=== PATIENT | male | born 1960 | race Caucasian/White ===

== ENCOUNTER 2022-11-26 21:20 | Inpatient (IN) | payer MEDICAID ==
[~2022-11-26] VITALS: Ht 177.8 cm; Wt 97.7 kg
[~2022-11-26 21:20] MED LIST: LIDOcaine 2% (20 mg/ml) 5ml cardiac syringe ONE; MAGNESIUM SULFATE 4 MEQ/ML (5gm/10ml) injection ONE; NORepinephrine 1 mg/ml inj IV ONE; albumin (human) 25% 100 ML IV solution IV ONE; aminocaproic acid 250 MG/1 ML inj. ONE; calcium chloride 100 MG/1 ML inj IV ONE; heparin 1,000 units/ml 10ml inj ONE; heparin 10,000 units/1 ML INJ ONE; mannitol 12.5gm/50mL VIAL IV ONE; methylPREDNISolone sod succ 1000mg vial ONE; sodium bicarbonate (8.4%) 1 mEq/ml syringe ONE
--- NOTE | 2022-11-26 21:41 | NUR ---
PER DR PINTO CONTINUE HEPARIN DRIP AT 1000 UNITS/HR THAT WAS STARTED PEN TESTER
[2022-11-26] MEDS: heparin 10,000 units/1 ML INJ IV PRN (21:42)
--- NOTE | 2022-11-26 21:42 | NUR ---
PER DR PINTO NO HEPARIN BOLUS PRIOR TO DRIP BOLUS WAS GIVEN AT PREVIOUS FACILITY
[2022-11-26 21:51] LABS: BASOPHILS % (AUTO) 0.3 % (0-1); EOSINOPHILS # (AUTO) 0.1 X10'3 (0-0.9); EOSINOPHILS % (AUTO) 1.2 % (0-6); HEMOGLOBIN 17.1 g/dl (14.0-17.9); LYMPHOCYTES # (AUTO) 1.7 X10'3 (1.1-4.8); LYMPHOCYTES % (AUTO) 20.6 % (21-51); MEAN CORPUSCULAR HEMOGLOBIN 30.7 PG (27.0-31.0); MEAN CORPUSCULAR HGB CONC 34.3 g/dL (33.0-36.5); MEAN CORPUSCULAR VOLUME 89.5 FL (78-98); MEAN PLATELET VOLUME 11.2 FL (7.4-10.4); MONOCYTES # (AUTO) 0.7 X10'3 (0-0.9); MONOCYTES % (AUTO) 8.1 % (2-12); NEUTROPHILS # (AUTO) 5.8 X10'3 (1.8-7.7); NEUTROPHILS % (AUTO) 69.8 % (42-75); PLATELET COUNT 182 X10'3 (140-440); RED BLOOD COUNT 5.58 X10'6 (4.70-6.10); RED CELL DISTRIBUTION WIDTH 13.6 % (11.5-14.5); WHITE BLOOD COUNT 8.3 X10'3 (4.5-11.0)
[2022-11-26 21:54] LABS: D-DIMER < 0.19 MG/L FEU (0-0.50)
[2022-11-26] MEDS: heparin 25,000 UNIT/250ml bag 250 ML IV PRN (21:55)
[2022-11-26 21:56] LABS: ALANINE AMINOTRANSFERASE 37 U/L (12-78); ALBUMIN 3.9 G/DL (3.4-5.0); ALBUMIN/GLOBULIN RATIO 1.3 (1.1-1.5); ALKALINE PHOSPHATASE 57 IU/L (46-116); ANION GAP 10 (8-16); ASPARTATE AMINO TRANSFERASE 94 U/L (10-37); BILIRUBIN,TOTAL 0.7 MG/DL (0.1-1.0); BLOOD UREA NITROGEN 14 MG/DL (7-18); BUN/CREATININE RATIO 16.9 (10.0-20.0); CALCIUM 9.4 MG/DL (8.5-10.1); CHLORIDE 103 MMOL/L (99-107); CREATININE 0.83 MG/DL (0.60-1.10); GLUCOSE 107 MG/DL (70-104); SODIUM 136 MMOL/L (135-145); TOTAL CARBON DIOXIDE 23.3 MMOL/L (24-32); eGFR > 90 ML/MIN
[2022-11-26] MEDS ORDERED: magnesium 4gm in 100ml NS 100 ML IV PRN (22:20)
[2022-11-26] MEDS ORDERED: mag hydrox/Alum hydrox/simeth 30ml oral suspension PO PRN (22:20)
[2022-11-26] MEDS ORDERED: magnesium 2GM in 50ml NS 50 ML IV PRN (22:20)
[2022-11-26] MEDS ORDERED: magnesium hydroxide 30ml (MOM) UD suspension PO PRN (22:20)
[2022-11-26] MEDS ORDERED: potassium Cl 40MEQ/1/2NS 520ml 520 ML IV PRN (22:20)
[2022-11-26] MEDS ORDERED: HYDROcodone/acetaminophen 5mg/325mg tablet PO PRN (22:20)
[2022-11-26] MEDS ORDERED: magnesium Cl slow-release 64mg tablet PO PRN (22:20)
[2022-11-26] MEDS ORDERED: potassium Cl 20 mEq SR tablet PO PRN ×2 (22:20)
[2022-11-26] MEDS ORDERED: ondansetron/PF 4mg/2ml inj IV PRN (22:20)
[2022-11-26] MEDS ORDERED: PERFLUTREN PROTEIN-A MICROSPHR (Optison) 0.22 MG/ML 3ML VIAL IV ONE (22:20)
[2022-11-26] MEDS ORDERED: metoprolol tartrate 50mg tablet PO ONE (22:25)
[2022-11-26] MEDS ORDERED: metoprolol tartrate 1mg/ml inj IV ONE (22:25)
[2022-11-26] MEDS: normal saline 1000ml 1,000 ML IV SCH (22:48)
--- NOTE | 2022-11-26 22:53 | NUR ---
CALL PLACED TO DR PANTOJA TO CLARIFY MED ORDERS PT HAS IV AND ORAL BETA BLOCKERS ORDERED WITH BP 128/92. PER MD GIVE IV FIRST, CHECK BP AFTER 30 MINUTES THEN GIVE ORAL IF APPROPRIATE. MD STATES BP SHOULD BE LOW AND HEART RATE SLOW PT IS HAVING NSTEMI
--- NOTE | 2022-11-26 23:10 | NUR ---
attempted to call report to floor rn, she is starting an IV and requests 10 minutes
--- NOTE | 2022-11-26 23:45 | NUR ---
Pt arrived to unit via gurney and ER nurse. Pt is A+Ox4, able to walk ad becca, states he has 3/10 tightness to chest, but not like it was earlier. Pt has no skin issues. NPO for medical laboratory scientist scheduled for morning shift.
[2022-11-27] VITALS (12 sets, daily range): BP systolic 102–141; BP diastolic 69–87
--- NOTE | 2022-11-27 01:29 | NUR ---
Spoke with Dr. Rosales regardign new Triponin level from lab of [phone]. will continue to monitor.
--- NOTE | 2022-11-27 06:08 | NUR ---
Problems reprioritized. Patient report given, questions answered & plan of care reviewed with Valery AMADOR. Pt stable at shift change.
[2022-11-27 06:48] LABS: BASOPHILS % (AUTO) 0.4 % (0-1); EOSINOPHILS # (AUTO) 0.1 X10'3 (0-0.9); EOSINOPHILS % (AUTO) 2.1 % (0-6); HEMOGLOBIN 16.5 g/dl (14.0-17.9); MONOCYTES # (AUTO) 0.4 X10'3 (0-0.9); MONOCYTES % (AUTO) 7.5 % (2-12); WHITE BLOOD COUNT 5.8 X10'3 (4.5-11.0)
[2022-11-27 06:50] LABS: HEMATOCRIT 48.9 % (42.0-52.0); LYMPHOCYTES # (AUTO) 1.6 X10'3 (1.1-4.8); LYMPHOCYTES % (AUTO) 27.4 % (21-51); MEAN CORPUSCULAR HEMOGLOBIN 30.3 PG (27.0-31.0); MEAN CORPUSCULAR HGB CONC 33.7 g/dL (33.0-36.5); MEAN CORPUSCULAR VOLUME 89.9 FL (78-98); MEAN PLATELET VOLUME 11.4 FL (7.4-10.4); NEUTROPHILS # (AUTO) 3.6 X10'3 (1.8-7.7); NEUTROPHILS % (AUTO) 62.6 % (42-75); PLATELET COUNT 187 X10'3 (140-440); RED BLOOD COUNT 5.44 X10'6 (4.70-6.10); RED CELL DISTRIBUTION WIDTH 13.4 % (11.5-14.5)
--- NOTE | 2022-11-27 07:00 | NUR ---
Patient in room PCU 3014. I have received report from Janessa AMADOR and had the opportunity to ask questions and assume patient care.
[2022-11-27 07:15] LABS: ALANINE AMINOTRANSFERASE 37 U/L (12-78); ALBUMIN 3.6 G/DL (3.4-5.0); ALBUMIN/GLOBULIN RATIO 1.2 (1.1-1.5); ALKALINE PHOSPHATASE 58 IU/L (46-116); ANION GAP 9 (8-16); ASPARTATE AMINO TRANSFERASE 76 U/L (10-37); BILIRUBIN,TOTAL 0.8 MG/DL (0.1-1.0); BLOOD UREA NITROGEN 12 MG/DL (7-18); BUN/CREATININE RATIO 11.9 (10.0-20.0); CALCIUM 8.8 MG/DL (8.5-10.1); CHLORIDE 104 MMOL/L (99-107); CREATININE 1.01 MG/DL (0.60-1.10); GLUCOSE 97 MG/DL (70-104); MAGNESIUM 1.8 MG/DL (1.5-2.4); POTASSIUM 4.1 MMOL/L (3.5-5.1); SODIUM 138 MMOL/L (135-145); TOTAL CARBON DIOXIDE 25.1 MMOL/L (24-32); TOTAL PROTEIN 6.7 G/DL (6.4-8.2); eGFR 75 ML/MIN
[2022-11-27] MEDS: heparin 10,000 units/1 ML INJ IV PRN (07:30)
[2022-11-27] MEDS: acetaminophen 325mg tablet PO PRN ×2 (07:36→19:44)
[2022-11-27] MEDS: K and/or MAG REPLACEMENT MC SCH ×2 (08:00→19:53)
[2022-11-27] MEDS ORDERED: aspirin 81mg, enteric-coated 1 TAB TABLET.DR PO SCH (08:00)
[2022-11-27] MEDS ORDERED: docusate sod 100mg capsule PO SCH (08:00)
[2022-11-27] MEDS ORDERED: atorvastatin 20mg tablet PO SCH (08:00)
[2022-11-27] MEDS ORDERED: iohexol 350 MG/ML 50ML vial IV ONE (11:20)
[2022-11-27] MEDS ORDERED: LIDOcaine 1% 30ml preserv. free vial ONE (11:20)
[2022-11-27] MEDS ORDERED: midazolam 1 mg/ML 2ml injection ONE (11:20)
[2022-11-27] MEDS ORDERED: fentaNYL/PF 50MCG/1 ML 2ML syringe ONE (11:20)
[2022-11-27] MEDS ORDERED: iohexol 350MG/ML 100ml bottle IV ONE (11:20)
[2022-11-27 11:33] LABS: CHOLESTEROL 216 MG/DL (0-200); HDL CHOLESTEROL 54 MG/DL (35-60); LDL CHOLESTEROL 145 MG/DL (50-100); TRIGLYCERIDES 101 MG/DL (20-135)
[2022-11-27 11:55] LABS: LARGE PLATELETS MODERATE; PLATELET ESTIMATE NORMAL
[2022-11-27] MEDS ORDERED: diphenhydrAMINE 50 mg/ml inj ONE (12:20)
[2022-11-27] MEDS ORDERED: dextrose 50%-water 50ml dispensing syringe IV PRN (12:45)
[2022-11-27] MEDS ORDERED: cefazolin/dext.iso 2gm/50ml 50 ML IV ONE (12:45)
[2022-11-27] MEDS ORDERED: HYDROcodone/acetaminophen 5mg/325mg tablet PO PRN (12:45)
[2022-11-27] MEDS ORDERED: ondansetron 4mg rapidly disintigrating tab PO PRN (12:45)
[2022-11-27] MEDS ORDERED: Insulin Reg/NS 100units/100mL 100 ML IV SCH (12:45)
[2022-11-27] MEDS ORDERED: MESSAGE TO NURSING PO ONE ×4 (12:45)
[2022-11-27] MEDS ORDERED: gabapentin 400mg capsule PO ONE (12:45)
[2022-11-27] MEDS ORDERED: insulin glargine (Lantus) pen - multi-dose SQ PRN (12:45)
[2022-11-27] MEDS ORDERED: MESSAGE TO PHARMACY IJ ONE (12:45)
--- NOTE | 2022-11-27 14:00 | NUR ---
pt received from medical laboratory technologist by bed. Doug MUNGUIA here- discussed or, shown pt pictures of cath and blockages
[2022-11-27] MEDS ORDERED: acetaminophen 325mg tablet PO PRN (14:50)
[2022-11-27] MEDS ORDERED: HYDROcodone/acetaminophen 10/325mg tab PO PRN ×2 (14:50→15:20)
[2022-11-27] MEDS ORDERED: nitroGLYCERIN 0.4mg SUBLingual tab SL PRN (14:50)
[2022-11-27] MEDS ORDERED: proCHLORperazine 10 MG/2 ml inj IV PRN (14:50)
[2022-11-27] MEDS ORDERED: magnesium hydroxide 30ml (MOM) UD suspension PO PRN (14:50)
--- NOTE | 2022-11-27 14:52 | NUR ---
Pt left for the lab animal technologist and was transferred to ICU.
[2022-11-27] MEDS ORDERED: normal saline 1000ml 1,000 ML IV ONE (14:55)
[2022-11-27] MEDS ORDERED: NO HOME MEDS (15:17)
[2022-11-27] MEDS ORDERED: morphine 10mg/ml inj. IV PRN (15:25)
[2022-11-27] MEDS: heparin 25,000 UNIT/250ml bag 250 ML IV PRN (18:44)
[2022-11-27 19:03] LABS: CLARITY,URINE CLEAR (Clear); COLOR,URINE YELLOW (Yellow); GLUCOSE, URINE NEGATIVE (Neg); KETONES,URINE TRACE mg/dl (Neg); LEUKOCYTE ESTERASE ,URINE NEGATIVE (Neg); NITRITES, URINE NEGATIVE (Neg); OCCULT BLOOD,URINE NEGATIVE (Neg); PH,URINE 6.5 (4.8-8.0); PROTEIN,URINE NEGATIVE (Neg)
[2022-11-27 19:06] LABS: UA COLLECTION TYPE NON-SPECIFIED
[2022-11-27 19:18] LABS: HEMOGLOBIN A1C 5.4 % (4.5-6.2)
[2022-11-27] MEDS: docusate sod 100mg capsule PO SCH (19:44)
[2022-11-27] MEDS: morphine 4 MG/ML inj SYRINge IV PRN ×2 (19:44→23:00)
[2022-11-27] MEDS: normal saline 1000ml 1,000 ML IV SCH (19:45)
[2022-11-27 19:56] LABS: ABG BASE EXCESS 1.8 mmol/L (-2.0-2.0); ABG PO2 (T) 87.4 mmHg (75.0-100.0); FCOHb 0.5 % (0.0-3.9); FMetHb 0.4 % (0.0-1.5); FO2Hb 96.1 % (94-97); PATIENT TEMPERATURE 36.7; TOTAL HEMOGLOBIN 16.3 G/dl (14.0-17.9)
[2022-11-27] MEDS: OXAZEpam 15mg capsule PO PRN (22:59)
[2022-11-28] VITALS (24 sets, daily range): BP systolic 97–148; BP diastolic 47–94
[2022-11-28 02:21] LABS: BASOPHILS % (AUTO) 0.5 % (0-1); EOSINOPHILS # (AUTO) 0.1 X10'3 (0-0.9); EOSINOPHILS % (AUTO) 1.5 % (0-6); HEMATOCRIT 44.9 % (42.0-52.0); HEMOGLOBIN 15.1 g/dl (14.0-17.9); LYMPHOCYTES # (AUTO) 1.2 X10'3 (1.1-4.8); LYMPHOCYTES % (AUTO) 22.5 % (21-51); MEAN CORPUSCULAR HEMOGLOBIN 30.5 PG (27.0-31.0); MEAN CORPUSCULAR HGB CONC 33.6 g/dL (33.0-36.5); MEAN CORPUSCULAR VOLUME 90.6 FL (78-98); MONOCYTES # (AUTO) 0.4 X10'3 (0-0.9); MONOCYTES % (AUTO) 6.9 % (2-12); NEUTROPHILS # (AUTO) 3.6 X10'3 (1.8-7.7); NEUTROPHILS % (AUTO) 68.6 % (42-75); PLATELET COUNT 163 X10'3 (140-440); RED BLOOD COUNT 4.95 X10'6 (4.70-6.10); RED CELL DISTRIBUTION WIDTH 13.4 % (11.5-14.5); WHITE BLOOD COUNT 5.2 X10'3 (4.5-11.0)
[2022-11-28 02:28] LABS: ALANINE AMINOTRANSFERASE 29 U/L (12-78); ALBUMIN 3.2 G/DL (3.4-5.0); ALBUMIN/GLOBULIN RATIO 1.1 (1.1-1.5); ALKALINE PHOSPHATASE 54 IU/L (46-116); ANION GAP 8 (8-16); ASPARTATE AMINO TRANSFERASE 50 U/L (10-37); BILIRUBIN,TOTAL 0.5 MG/DL (0.1-1.0); BLOOD UREA NITROGEN 14 MG/DL (7-18); BUN/CREATININE RATIO 15.9 (10.0-20.0); CALCIUM 8.3 MG/DL (8.5-10.1); CHLORIDE 105 MMOL/L (99-107); CREATININE 0.88 MG/DL (0.60-1.10); GLUCOSE 123 MG/DL (70-104); MAGNESIUM 1.8 MG/DL (1.5-2.4); SODIUM 140 MMOL/L (135-145); TOTAL CARBON DIOXIDE 26.9 MMOL/L (24-32); TOTAL PROTEIN 6.1 G/DL (6.4-8.2); eGFR 87 ML/MIN
[2022-11-28 02:29] LABS: POTASSIUM 3.8 MMOL/L (3.5-5.1)
[2022-11-28] MEDS: heparin 10,000 units/1 ML INJ IV PRN (03:30)
[2022-11-28] MEDS: morphine 4 MG/ML inj SYRINge IV PRN ×2 (05:01→09:09)
--- NOTE | 2022-11-28 06:30 | NUR ---
Patient in room ICU 2043. I have received report from sekou and had the opportunity to ask questions and assume patient care.
[2022-11-28] MEDS: K and/or MAG REPLACEMENT MC SCH ×2 (06:47→20:00)
--- NOTE | 2022-11-28 07:00 | NUR ---
drsg removed arterial sheath as waveform straight and wouldnt pull back blood. waveform resumed- redressed.
[2022-11-28] MEDS: aspirin 81mg tab.chew PO SCH (07:36)
[2022-11-28] MEDS: atorvastatin 20mg tablet PO SCH (07:36)
[2022-11-28] MEDS: docusate sod 100mg capsule PO SCH ×2 (07:36→21:14)
[2022-11-28] MEDS: cyclobenzaprine 10mg tablet PO PRN (10:36)
[2022-11-28] MEDS: normal saline 1000ml 1,000 ML IV SCH (11:02)
[2022-11-28] MEDS ORDERED: ringers solution, lacted 1,000 ML IV ONE (12:55)
--- NOTE | 2022-11-28 13:24 | NUR ---
rt arterial sheath drsg with drainage- pt keeping leg straight. reinforced. ptt 139- heparin off x 2 hours and restarted at 1100 units/hr. ms and flexeril given with some relief. girlfriend at bs. instructed some on positing, use of is and flutter valve
--- NOTE | 2022-11-28 15:00 | NUR ---
ptt to 41, will increase rate to 1300 units / hr without bolus
[2022-11-28] MEDS: heparin 25,000 UNIT/250ml bag 250 ML IV PRN (15:22)
[2022-11-28] MEDS: HYDROcodone/acetaminophen 10/325mg tab PO PRN ×2 (15:30→21:14)
[2022-11-28] MEDS: OXAZEpam 15mg capsule PO PRN (21:14)
[2022-11-29] VITALS (22 sets, daily range): BP systolic 87–166; BP diastolic 48–94
[2022-11-29 01:52] LABS: ALANINE AMINOTRANSFERASE 28 U/L (12-78); ALBUMIN 2.9 G/DL (3.4-5.0); ALKALINE PHOSPHATASE 51 IU/L (46-116); ANION GAP 6 (8-16); ASPARTATE AMINO TRANSFERASE 38 U/L (10-37); BILIRUBIN,TOTAL 0.5 MG/DL (0.1-1.0); BLOOD UREA NITROGEN 19 MG/DL (7-18); BUN/CREATININE RATIO 21.1 (10.0-20.0); CALCIUM 8.3 MG/DL (8.5-10.1); CHLORIDE 104 MMOL/L (99-107); GLUCOSE 103 MG/DL (70-104); MAGNESIUM 1.9 MG/DL (1.5-2.4); SODIUM 137 MMOL/L (135-145); TOTAL CARBON DIOXIDE 27.2 MMOL/L (24-32); TOTAL PROTEIN 5.9 G/DL (6.4-8.2); eGFR 85 ML/MIN
[2022-11-29 01:56] LABS: POTASSIUM 4.3 MMOL/L (3.5-5.1)
[2022-11-29 02:10] LABS: BASOPHILS % (AUTO) 0.5 % (0-1); EOSINOPHILS # (AUTO) 0.2 X10'3 (0-0.9); EOSINOPHILS % (AUTO) 3.4 % (0-6); HEMATOCRIT 42.3 % (42.0-52.0); HEMOGLOBIN 14.3 g/dl (14.0-17.9); LYMPHOCYTES # (AUTO) 1.4 X10'3 (1.1-4.8); LYMPHOCYTES % (AUTO) 30.4 % (21-51); MEAN CORPUSCULAR HEMOGLOBIN 30.9 PG (27.0-31.0); MEAN CORPUSCULAR HGB CONC 33.8 g/dL (33.0-36.5); MEAN CORPUSCULAR VOLUME 91.4 FL (78-98); MONOCYTES # (AUTO) 0.4 X10'3 (0-0.9); MONOCYTES % (AUTO) 9.1 % (2-12); NEUTROPHILS # (AUTO) 2.6 X10'3 (1.8-7.7); NEUTROPHILS % (AUTO) 56.6 % (42-75); RED BLOOD COUNT 4.63 X10'6 (4.70-6.10); RED CELL DISTRIBUTION WIDTH 13.6 % (11.5-14.5); WHITE BLOOD COUNT 4.5 X10'3 (4.5-11.0)
[2022-11-29 03:51] LABS: PLATELET COUNT 149 X10'3 (140-440)
[2022-11-29] MEDS: morphine 4 MG/ML inj SYRINge IV PRN ×2 (05:51→20:13)
[2022-11-29] MEDS: K and/or MAG REPLACEMENT MC SCH ×2 (06:50→20:00)
[2022-11-29] MEDS: normal saline 1000ml 1,000 ML IV SCH (07:59)
[2022-11-29] MEDS: docusate sod 100mg capsule PO SCH ×2 (08:49→20:00)
[2022-11-29] MEDS: aspirin 81mg tab.chew PO SCH (08:50)
[2022-11-29] MEDS: atorvastatin 20mg tablet PO SCH (08:50)
[2022-11-29] MEDS: heparin 25,000 UNIT/250ml bag 250 ML IV PRN (12:11)
[2022-11-29] MEDS: cyclobenzaprine 10mg tablet PO PRN (17:07)
[2022-11-30] VITALS (27 sets, daily range): BP systolic 89–153; BP diastolic 43–89
[2022-11-30] MEDS: morphine 4 MG/ML inj SYRINge IV PRN (01:36)
[2022-11-30 02:42] LABS: ALANINE AMINOTRANSFERASE 46 U/L (12-78); ALBUMIN 3.1 G/DL (3.4-5.0); ALKALINE PHOSPHATASE 65 IU/L (46-116); ANION GAP 8 (8-16); ASPARTATE AMINO TRANSFERASE 38 U/L (10-37); BILIRUBIN,TOTAL 0.5 MG/DL (0.1-1.0); BLOOD UREA NITROGEN 14 MG/DL (7-18); BUN/CREATININE RATIO 15.6 (10.0-20.0); CALCIUM 8.6 MG/DL (8.5-10.1); CHLORIDE 104 MMOL/L (99-107); GLUCOSE 104 MG/DL (70-104); MAGNESIUM 2.3 MG/DL (1.5-2.4); POTASSIUM 4.1 MMOL/L (3.5-5.1); SODIUM 140 MMOL/L (135-145); TOTAL CARBON DIOXIDE 28.1 MMOL/L (24-32); TOTAL PROTEIN 6.3 G/DL (6.4-8.2); eGFR 85 ML/MIN
[2022-11-30 02:46] LABS: EOSINOPHILS # (AUTO) 0.1 X10'3 (0-0.9); LYMPHOCYTES # (AUTO) 1.2 X10'3 (1.1-4.8); LYMPHOCYTES % (AUTO) 27.7 % (21-51); MEAN CORPUSCULAR HEMOGLOBIN 30.5 PG (27.0-31.0)
[2022-11-30 02:48] LABS: BASOPHILS % (AUTO) 0.7 % (0-1); EOSINOPHILS % (AUTO) 3.2 % (0-6); HEMATOCRIT 44.7 % (42.0-52.0); HEMOGLOBIN 15.1 g/dl (14.0-17.9); MEAN CORPUSCULAR HGB CONC 33.7 g/dL (33.0-36.5); MEAN CORPUSCULAR VOLUME 90.6 FL (78-98); MEAN PLATELET VOLUME 11.3 FL (7.4-10.4); MONOCYTES # (AUTO) 0.4 X10'3 (0-0.9); NEUTROPHILS # (AUTO) 2.5 X10'3 (1.8-7.7); NEUTROPHILS % (AUTO) 59.4 % (42-75); PLATELET COUNT 160 X10'3 (140-440); RED BLOOD COUNT 4.94 X10'6 (4.70-6.10); RED CELL DISTRIBUTION WIDTH 13.2 % (11.5-14.5); WHITE BLOOD COUNT 4.3 X10'3 (4.5-11.0)
[2022-11-30] MEDS: normal saline 1000ml 1,000 ML IV SCH (03:02)
[2022-11-30] MEDS ORDERED: gabapentin 400mg capsule PO ONE (05:30)
[2022-11-30] MEDS ORDERED: MESSAGE TO NURSING PO ONE ×5 (05:30→10:00)
[2022-11-30] MEDS ORDERED: LORazepam 2 mg/ml vial IV ONE (05:30)
[2022-11-30] MEDS ORDERED: famotidine/PF 10 mg/ml inj IV ONE (05:30)
[2022-11-30] MEDS: Insulin Reg/NS 100units/100mL 100 ML IV SCH ×3 (05:30→16:05)
[2022-11-30] MEDS ORDERED: cefazolin/dext.iso 2gm/50ml 50 ML IV ONE (05:30)
[2022-11-30] MEDS ORDERED: insulin glargine (Lantus) pen - multi-dose SQ PRN ×2 (05:30→14:30)
[2022-11-30] MEDS ORDERED: dextrose 50%-water 50ml dispensing syringe IV PRN ×2 (05:30→14:30)
[2022-11-30 06:35] LABS: LARGE PLATELETS MODERATE; PLATELET ESTIMATE NORMAL
--- NOTE | 2022-11-30 06:53 | NUR ---
Messaged ICU director re. advocacy for pt. as pt. is requesting someone with authority/administration to talk with him re. plan of care as CABG is on hold indefinitely. underwriting sales representative updated.
[2022-11-30] MEDS: atorvastatin 20mg tablet PO SCH (07:27)
[2022-11-30] MEDS: docusate sod 100mg capsule PO SCH (07:27)
[2022-11-30] MEDS: aspirin 81mg tab.chew PO SCH (07:28)
[2022-11-30] MEDS: K and/or MAG REPLACEMENT MC SCH (08:00)
[2022-11-30] MEDS ORDERED: mupirocin 2% nasal ointment 1gm UD NS SCH (08:00)
[2022-11-30] MEDS: heparin 25,000 UNIT/250ml bag 250 ML IV PRN (09:00)
[2022-11-30] MEDS ORDERED: BUPIVAcaine/PF 2.5 mg/ml (0.25%) 30ml vial ONE (09:08)
[2022-11-30] MEDS ORDERED: ceFAZolin 1000mg inj ONE (09:08)
[2022-11-30] MEDS ORDERED: epiNEPHrine 1 mg/ml inj ONE (09:08)
--- NOTE | 2022-11-30 09:08 | NUR ---
Pt. to have CABG at 1000 today. Prepped per RN. Awaiting call from CVOR to start Vanco. at bedside.
[2022-11-30] MEDS ORDERED: MIDAZolam 1mg/ml 10ml vial ONE (10:12)
[2022-11-30] MEDS ORDERED: SUfentanil 50mcg/ml 1ml amp IV ONE (10:13)
[2022-11-30] MEDS ORDERED: LIDOcaine 2% (20mg/ml) 5ml vial ONE (10:14)
[2022-11-30] MEDS ORDERED: propofol inj 20 ML IV ONE (10:14)
[2022-11-30] MEDS ORDERED: rocuronium 10mg/ml inj IV ONE ×4 (10:14)
[2022-11-30] MEDS ORDERED: phenylephrine 10mg/ml inj. -priapism dosing ONE (10:14)
[2022-11-30] MEDS ORDERED: 0.9 % SODIUM CHLORIDE 10 ML VIAL ONE ×2 (10:15)
[2022-11-30] MEDS ORDERED: nitroGLYCERIN in D5W 50mg/250ml (Tridil) infusion IV ONE (10:17)
[2022-11-30] MEDS ORDERED: NORepinephrine 8 MG in NS 250 ML BAG (32 mcg/ml) IV ONE (10:17)
[2022-11-30] MEDS ORDERED: isoflurane 100ml inhalation liquid IH ONE (10:17)
--- NOTE | 2022-11-30 10:18 | NUR ---
Pt to CVOR. at bedside.
[2022-11-30] MEDS ORDERED: propofol 1000mg/100ml bottle 100 ML IV SCH (10:20)
[2022-11-30] MEDS ORDERED: fentaNYL/PF 50MCG/1 ML 2ML syringe IV PRN (10:20)
[2022-11-30] MEDS ORDERED: midazolam 1 mg/ML 2ml injection IV PRN (10:20)
[2022-11-30] MEDS ORDERED: FENTANYL-0.9 % NACL/PF 100 ML IV PRN (10:20)
[2022-11-30] MEDS ORDERED: BUPIVAcaine/PF 2.5 mg/ml (0.25%) 30ml vial IJ ONE (11:00)
[2022-11-30] MEDS ORDERED: ceFAZolin 1000mg inj IR ONE (11:00)
[2022-11-30] MEDS ORDERED: papaverine 30 mg/ml 2ml inj. ICAR ONE (11:00)
[2022-11-30] MEDS ORDERED: heparin 10,000 units/1 ML INJ IR ONE (11:00)
[2022-11-30 11:23] LABS: ABG BASE EXCESS -1.9 mmol/L (-2.0-2.0); ABG HCO3 21.9 mmol/L (22.0-26.0); ABG OXYGEN SATURATION 99.8 % (94-97); ABG PCO2 34.6 mmHg (35.0-48.0); CL (ABG) 103 mmol/L (99-107); FCOHb 0.6 % (0.0-3.9); FMetHb 0.2 % (0.0-1.5); GLUCOSE (ABG) 91 mg/dl (70-104); IONIZED CA (ABG) 1.08 mmol/L (1.10-1.30); K (ABG) 3.8 mmol/L (3.5-5.1); TOTAL HEMOGLOBIN 14.9 G/dl (14.0-17.9)
[2022-11-30] MEDS ORDERED: metoprolol tartrate 1mg/ml inj IV ONE (11:43)
[2022-11-30] MEDS ORDERED: papaverine 30 mg/ml 2ml inj. ONE (13:00)
[2022-11-30] MEDS ORDERED: heparin 10,000 units/1 ML INJ ONE (13:00)
[2022-11-30 13:01] LABS: ABG BASE EXCESS 0.5 mmol/L (-2.0-2.0); ABG HCO3 23.5 mmol/L (22.0-26.0); ABG OXYGEN SATURATION 99.7 % (94-97); ABG PCO2 32.2 mmHg (35.0-48.0); ABG PO2 498.4 mmHg (75.0-100.0); CL (ABG) 100 mmol/L (99-107); FCOHb 0.1 % (0.0-3.9); FMetHb 0.3 % (0.0-1.5); FO2Hb 99.3 % (94-97); GLUCOSE (ABG) 97 mg/dl (70-104); IONIZED CA (ABG) 0.94 mmol/L (1.10-1.30); K (ABG) 3.8 mmol/L (3.5-5.1); TOTAL HEMOGLOBIN 11.2 G/dl (14.0-17.9)
[2022-11-30 13:40] LABS: ABG BASE EXCESS VENOUS -1.6 mmol/L (-2.0 - 2.0); ABG HCO3 VENOUS 23.4 mmol/L (21.0-28.0); ABG PCO2 VENOUS 40.4 mmHg (41.0-54.0); ABG PO2 VENOUS 45.3 mmHg (25.0-35.0); CL (ABG) 101 mmol/L (99-107); FCOHb VENOUS 0.5 %; FHHb VENOUS 18.3 %; FMetHb VENOUS 0.3 % (0.0 - 0.5); FO2Hb VENOUS 80.9 %; GLUCOSE (ABG) 116 mg/dl (70-104); IONIZED CA (ABG) 0.99 mmol/L (1.10-1.30); K (ABG) 4.4 mmol/L (3.5-5.1); TOTAL HEMOGLOBIN 11.2 G/dl (14.0-17.9)
[2022-11-30 14:12] LABS: ABG BASE EXCESS VENOUS -0.4 mmol/L (-2.0 - 2.0); ABG HCO3 VENOUS 24.4 mmol/L (21.0-28.0); ABG PCO2 VENOUS 40.6 mmHg (41.0-54.0); ABG PO2 VENOUS 108.4 mmHg (25.0-35.0); CL (ABG) 103 mmol/L (99-107); FCOHb VENOUS 0.3 %; FHHb VENOUS 2.1 %; FMetHb VENOUS 0.3 % (0.0 - 0.5); FO2Hb VENOUS 97.3 %; GLUCOSE (ABG) 115 mg/dl (70-104); IONIZED CA (ABG) 1.14 mmol/L (1.10-1.30); K (ABG) 4.1 mmol/L (3.5-5.1); TOTAL HEMOGLOBIN 11.6 G/dl (14.0-17.9)
[2022-11-30] MEDS ORDERED: ondansetron/PF 4mg/2ml inj ONE (14:12)
[2022-11-30] MEDS ORDERED: dexamethasone sod phosphate 4mg/ml inj. ONE (14:12)
[2022-11-30 14:15] LABS: ACTIVATED CLOTTING TIME 135 SEC (101-148)
[2022-11-30] MEDS ORDERED: sodium phosphate inj. 30 MMOL in dextrose 5%-water 250 ML IV PRN (14:30)
[2022-11-30] MEDS ORDERED: potassium CL 10mEq/100ml bag 100 ML IV PRN (14:30)
[2022-11-30] MEDS ORDERED: Insulin Reg/NS 100units/100mL 100 ML IV SCH (14:30)
[2022-11-30] MEDS ORDERED: potassium Cl 20 mEq SR tablet PO PRN (14:30)
[2022-11-30] MEDS ORDERED: Neutra Phos packet PO PRN (14:30)
[2022-11-30] MEDS ORDERED: mineral oil 133ml enema RC PRN (14:30)
[2022-11-30] MEDS ORDERED: magnesium hydroxide 30ml (MOM) UD suspension PO PRN (14:30)
[2022-11-30] MEDS ORDERED: nitroGLYCERIN-Tridil 50MG/D5W 250 ML IV PRN (14:30)
[2022-11-30] MEDS ORDERED: potassium Cl 40MEQ/270ML bag 250 ML IV PRN (14:30)
[2022-11-30] MEDS ORDERED: niCARDipine-NS 40mg/200ml IVPB 200 ML IV PRN (14:30)
[2022-11-30] MEDS ORDERED: acetaminophen 325mg tablet PO PRN (14:30)
[2022-11-30] MEDS ORDERED: morphine 4 MG/ML inj SYRINge IV PRN (14:30)
[2022-11-30] MEDS ORDERED: bisacodyl 10mg suppository rectal RC PRN (14:30)
[2022-11-30] MEDS ORDERED: potassium Cl 20mEq/100mL bag 100 ML IV PRN (14:30)
[2022-11-30] MEDS ORDERED: sodium phosphate inj. 15 MMOL in dextrose 5%-water 250 ML IV PRN (14:30)
[2022-11-30] MEDS ORDERED: magnesium 4gm in 100ml NS 100 ML IV PRN (14:30)
[2022-11-30] MEDS ORDERED: metoclopramide 5 mg/ml inj IV PRN (14:30)
[2022-11-30] MEDS ORDERED: potassium Cl 40MEQ/1/2NS 520ml 520 ML IV PRN (14:30)
[2022-11-30] MEDS ORDERED: sodium chloride 0.45% 1,000 ML IV SCH (14:30)
[2022-11-30] MEDS ORDERED: normal saline 250ml IV soln 250 ML IV PRN (14:30)
--- NOTE | 2022-11-30 14:55 | NUR ---
Received to room 2043, accompanied by MDs and surgical crew. Placed on ventilator, to monitoring analyst, arterial line and PA line pressure zeroed & monitored. Chest tubes to suction at 20 cm. Ribeiro cath to gravity drainage. Dressings are dry and intact. See assessment record. All vasoactive drugs are infusing via central line.
[2022-11-30 15:06] LABS: ABG BASE EXCESS -2.6 mmol/L (-2.0-2.0); ABG HCO3 21.8 mmol/L (22.0-26.0); ABG OXYGEN SATURATION 98.2 % (94-97); ABG PCO2 (T) 36.9 mmHg (35.0-48.0); ABG PO2 (T) 138.5 mmHg (75.0-100.0); FCOHb 0.3 % (0.0-3.9); FMetHb 0.4 % (0.0-1.5); FO2Hb 97.5 % (94-97); PATIENT TEMPERATURE 37.1; PEEP 5 cm H2O; RESPIRATORY RATE 12 b/min; TIDAL VOLUME 600 mL; TOTAL HEMOGLOBIN 13.9 G/dl (14.0-17.9)
[2022-11-30 15:23] LABS: BASOPHILS % (AUTO) 0.2 % (0-1); EOSINOPHILS # (AUTO) 0.1 X10'3 (0-0.9); EOSINOPHILS % (AUTO) 0.9 % (0-6); HEMATOCRIT 38.9 % (42.0-52.0); HEMOGLOBIN 13.3 g/dl (14.0-17.9); LYMPHOCYTES # (AUTO) 0.5 X10'3 (1.1-4.8); LYMPHOCYTES % (AUTO) 8.8 % (21-51); MEAN CORPUSCULAR HEMOGLOBIN 30.9 PG (27.0-31.0); MEAN CORPUSCULAR HGB CONC 34.1 g/dL (33.0-36.5); MEAN CORPUSCULAR VOLUME 90.6 FL (78-98); MEAN PLATELET VOLUME 10.7 FL (7.4-10.4); MONOCYTES # (AUTO) 0.2 X10'3 (0-0.9); MONOCYTES % (AUTO) 4.1 % (2-12); NEUTROPHILS # (AUTO) 4.7 X10'3 (1.8-7.7); PLATELET COUNT 128 X10'3 (140-440); RED CELL DISTRIBUTION WIDTH 13.3 % (11.5-14.5); WHITE BLOOD COUNT 5.5 X10'3 (4.5-11.0)
[2022-11-30 15:29] LABS: APTT 29 SECONDS (22-32)
[2022-11-30 15:31] LABS: ALANINE AMINOTRANSFERASE 43 U/L (12-78); ALBUMIN 2.9 G/DL (3.4-5.0); ALBUMIN/GLOBULIN RATIO 1.3 (1.1-1.5); ALKALINE PHOSPHATASE 53 IU/L (46-116); ANION GAP 7 (8-16); ASPARTATE AMINO TRANSFERASE 49 U/L (10-37); BILIRUBIN,TOTAL 0.8 MG/DL (0.1-1.0); BLOOD UREA NITROGEN 13 MG/DL (7-18); BUN/CREATININE RATIO 12.5 (10.0-20.0); CALCIUM 8.2 MG/DL (8.5-10.1); CHLORIDE 105 MMOL/L (99-107); CREATININE 1.04 MG/DL (0.60-1.10); GLUCOSE 131 MG/DL (70-104); MAGNESIUM 2.7 MG/DL (1.5-2.4); PHOSPHORUS 3.1 MG/DL (2.3-4.5); POTASSIUM 4.1 MMOL/L (3.5-5.1); SODIUM 139 MMOL/L (135-145); TOTAL CARBON DIOXIDE 27.5 MMOL/L (24-32); TOTAL PROTEIN 5.2 G/DL (6.4-8.2); eGFR 72 ML/MIN
[2022-11-30] MEDS ORDERED: potassium Cl 40MEQ/1/2NS 520ml 520 ML IV ONE (16:00)
[2022-11-30] MEDS: ceFAZolin/D5W- 1GM premix 50 ML IV SCH ×2 (16:12→23:47)
[2022-11-30] MEDS: albumin (Human) 5% 250ml 250 ML IV PRN ×2 (16:19→16:54)
--- NOTE | 2022-11-30 16:36 | NUR ---
Right femoral sheath pulled at 1600 after checking ACT. Femstop applied at 1615.
--- NOTE | 2022-11-30 17:59 | NUR ---
Pt. stable. Received Albumin X 2. Minimal CT output. Received Morphine 4mg X 1 while holding manual pressure for right femoral sheath removal around 1600. Pt. responds to verbal stimuli. Good urine output.
--- NOTE | 2022-11-30 18:11 | NUR ---
Problems reprioritized. Patient report given, questions answered & plan of care reviewed with Farzaneh AMADOR.
--- NOTE | 2022-11-30 18:14 | NUR ---
Patient in room ICU 2043. I have received report from Aydee AMADOR and had the opportunity to ask questions and assume patient care. Pt on vent, sleepy, awakes calmly and follows commands, moves all extremities.
[2022-11-30] MEDS: mupirocin 2% nasal ointment 1gm UD NS SCH (19:28)
[2022-11-30] MEDS: HYDROcodone/acetaminophen 10/325mg tab PO PRN (19:28)
[2022-11-30] MEDS: vancomycin/NS 1 GM ADD-VANTAGE 250 ML IV SCH (19:28)
[2022-11-30] MEDS: sennosides/docusate sodium tablet PO SCH (19:28)
[2022-11-30] MEDS: atorvastatin 10mg tablet PO SCH (20:38)
[2022-11-30] MEDS: gabapentin 300mg capsule PO SCH (20:38)
[2022-11-30 21:06] LABS: BASOPHILS % (AUTO) 0.1 % (0-1); EOSINOPHILS % (AUTO) 0 % (0-6); HEMATOCRIT 37.9 % (42.0-52.0); LYMPHOCYTES # (AUTO) 0.2 X10'3 (1.1-4.8); LYMPHOCYTES % (AUTO) 3.4 % (21-51); MEAN CORPUSCULAR HEMOGLOBIN 31.2 PG (27.0-31.0); MEAN CORPUSCULAR HGB CONC 34.4 g/dL (33.0-36.5); MEAN CORPUSCULAR VOLUME 90.5 FL (78-98); MEAN PLATELET VOLUME 10.5 FL (7.4-10.4); MONOCYTES # (AUTO) 0.2 X10'3 (0-0.9); MONOCYTES % (AUTO) 2.3 % (2-12); NEUTROPHILS # (AUTO) 6.6 X10'3 (1.8-7.7); NEUTROPHILS % (AUTO) 94.2 % (42-75); PLATELET COUNT 125 X10'3 (140-440); RED BLOOD COUNT 4.18 X10'6 (4.70-6.10); RED CELL DISTRIBUTION WIDTH 13.2 % (11.5-14.5)
[2022-11-30 21:22] LABS: ALBUMIN 3.3 G/DL (3.4-5.0); ANION GAP 7 (8-16); BLOOD UREA NITROGEN 15 MG/DL (7-18); CALCIUM 7.8 MG/DL (8.5-10.1); CHLORIDE 108 MMOL/L (99-107); CREATININE 1.07 MG/DL (0.60-1.10); GLUCOSE 146 MG/DL (70-104); MAGNESIUM 2.3 MG/DL (1.5-2.4); PHOSPHORUS 3.2 MG/DL (2.3-4.5); POTASSIUM 4.2 MMOL/L (3.5-5.1); SODIUM 141 MMOL/L (135-145); eGFR 70 ML/MIN
[2022-11-30] MEDS: magnesium 2GM in 50ml NS 50 ML IV PRN (21:32)
[2022-11-30] MEDS ORDERED: potassium Cl 40MEQ/270ML bag 270 ML IV PRN (21:32)
[2022-11-30 21:52] LABS: ABG BASE EXCESS -1.2 mmol/L (-2.0-2.0); ABG HCO3 23.9 mmol/L (22.0-26.0); ABG OXYGEN SATURATION 96.2 % (94-97); ABG PCO2 (T) 42.7 mmHg (35.0-48.0); ABG PO2 (T) 92.7 mmHg (75.0-100.0); ALLEN'S TEST POSITIVE; FCOHb 0.3 % (0.0-3.9); FMetHb 0.5 % (0.0-1.5); FO2Hb 95.4 % (94-97); PATIENT TEMPERATURE 37.8; PEEP 5 cm H2O; TOTAL HEMOGLOBIN 13.8 G/dl (14.0-17.9)
[2022-12-01] VITALS (23 sets, daily range): BP systolic 86–123; BP diastolic 51–73
[2022-12-01] MEDS: HYDROcodone/acetaminophen 10/325mg tab PO PRN ×5 (01:43→20:39)
[2022-12-01 03:32] LABS: BASOPHILS % (AUTO) 0.2 % (0-1); EOSINOPHILS % (AUTO) 0.3 % (0-6); HEMATOCRIT 37.9 % (42.0-52.0); LYMPHOCYTES # (AUTO) 0.3 X10'3 (1.1-4.8); LYMPHOCYTES % (AUTO) 3.4 % (21-51); MEAN CORPUSCULAR HEMOGLOBIN 31.2 PG (27.0-31.0); MEAN CORPUSCULAR HGB CONC 34.3 g/dL (33.0-36.5); MEAN PLATELET VOLUME 11.2 FL (7.4-10.4); MONOCYTES # (AUTO) 0.2 X10'3 (0-0.9); MONOCYTES % (AUTO) 2.3 % (2-12); NEUTROPHILS # (AUTO) 7.6 X10'3 (1.8-7.7); NEUTROPHILS % (AUTO) 93.8 % (42-75); PLATELET COUNT 124 X10'3 (140-440); RED BLOOD COUNT 4.16 X10'6 (4.70-6.10); RED CELL DISTRIBUTION WIDTH 13.3 % (11.5-14.5); WHITE BLOOD COUNT 8.1 X10'3 (4.5-11.0)
[2022-12-01 03:45] LABS: ALANINE AMINOTRANSFERASE 48 U/L (12-78); ALBUMIN 3.3 G/DL (3.4-5.0); ALBUMIN/GLOBULIN RATIO 1.4 (1.1-1.5); ALKALINE PHOSPHATASE 47 IU/L (46-116); ANION GAP 8 (8-16); ASPARTATE AMINO TRANSFERASE 49 U/L (10-37); BILIRUBIN,TOTAL 0.6 MG/DL (0.1-1.0); BLOOD UREA NITROGEN 14 MG/DL (7-18); BUN/CREATININE RATIO 14.9 (10.0-20.0); CALCIUM 7.8 MG/DL (8.5-10.1); CHLORIDE 106 MMOL/L (99-107); CREATININE 0.94 MG/DL (0.60-1.10); GLUCOSE 138 MG/DL (70-104); MAGNESIUM 2.4 MG/DL (1.5-2.4); POTASSIUM 4.5 MMOL/L (3.5-5.1); SODIUM 138 MMOL/L (135-145); TOTAL CARBON DIOXIDE 23.6 MMOL/L (24-32); TOTAL PROTEIN 5.7 G/DL (6.4-8.2); eGFR 81 ML/MIN
[2022-12-01 03:48] LABS: APTT 29 SECONDS (22-32)
[2022-12-01] MEDS: magnesium 2GM in 50ml NS 50 ML IV PRN (04:20)
--- NOTE | 2022-12-01 06:21 | NUR ---
Problems reprioritized. Patient report given, questions answered & plan of care reviewed with Johnny AMADOR.
--- NOTE | 2022-12-01 06:29 | NUR ---
Patient in room ICU 2043. I have received report from Farzaneh AMADOR and had the opportunity to ask questions and assume patient care.
[2022-12-01] MEDS: aspirin 81mg tab.chew PO SCH (07:52)
[2022-12-01] MEDS: sennosides/docusate sodium tablet PO SCH ×2 (07:52→20:38)
[2022-12-01] MEDS: metoprolol tartrate 12.5mg (1/2 tablet) PO SCH ×2 (07:53→20:00)
[2022-12-01] MEDS: mupirocin 2% nasal ointment 1gm UD NS SCH ×2 (07:53→20:39)
[2022-12-01] MEDS: gabapentin 300mg capsule PO SCH ×3 (07:53→20:38)
[2022-12-01] MEDS: ceFAZolin/D5W- 1GM premix 50 ML IV SCH ×2 (07:54→15:57)
[2022-12-01] MEDS ORDERED: diltiazem CD 120mg capsule (once-daily) PO SCH (08:00)
[2022-12-01] MEDS: diltiazem SR 60mg capsule (twice daily) PO SCH ×2 (08:00→20:00)
[2022-12-01] MEDS: vancomycin/NS 1 GM ADD-VANTAGE 250 ML IV SCH ×2 (09:10→20:39)
--- NOTE | 2022-12-01 12:16 | NUR ---
CABG Consult: Pt admit DX NSTEMI and CAD post-op day 1 s/p CABG x4 extubated last night per EMR; would benefit from high protein/heart healthy diet eds once more appropriate post-op prior to discharge. Pt PO 100% avg first ~2.5 days of meals pre-op w/ 50% first NCS meal WB this AM post-op; overall partially meeting estimated needs given NPO periods. May benefit from Armand vs Ensures pending further PO trends post-op. No BM yet this admit 5 days receiving routine senna-s post-op. Will monitor for further PO trends and nutrition intervention needs this admit. Rec: 1. continue NCS diet per MD; advance to heart healthy as medically indicated 2. Consider Armand vs Ensure ONS or combination for wound healing given pt statue; pending further PO trends post-op; ate ~100% meals pre-op 3. routine bowel care; no BM 5 days 4. daily scaled wt 5. High protein/heart healthy diet eds once more appropriate post-op prior to discharge Addendum: 12/01/22 at [address] Amended: Links added.
[2022-12-01] MEDS: morphine 2 MG/ML inj. syringe IV PRN ×2 (13:07→18:41)
--- NOTE | 2022-12-01 13:35 | NUR ---
Walked pt in hallway 100. Pt has since complained of increased chest pain located at chest tube site. Pain medically managed. Pt ate lunch in the chair and pain was unresolved. Pt wanted back into bed and breakthrough pain was medically managed. Pt resting in bed currently.
[2022-12-01] MEDS ORDERED: mineral oil/petrolatum ophthal oint EACHEYE SCH (14:00)
--- NOTE | 2022-12-01 16:08 | NUR ---
Walked pt in hallway for 2nd time today. Pt ambulated for 120ft. Pt has less pain in chest after ambulating this time. Pt was able to get back in bed without further medical management for breakthrough pain.
--- NOTE | 2022-12-01 18:18 | NUR ---
Problems reprioritized. Patient report given, questions answered & plan of care reviewed with Janessa AMADOR.
[2022-12-01] MEDS: atorvastatin 10mg tablet PO SCH (20:42)
[2022-12-02] VITALS (15 sets, daily range): BP systolic 84–126; BP diastolic 57–71
[2022-12-02] MEDS: ceFAZolin/D5W- 1GM premix 50 ML IV SCH (00:10)
[2022-12-02] MEDS: HYDROcodone/acetaminophen 10/325mg tab PO PRN ×7 (03:41→23:22)
[2022-12-02 04:00] LABS: BASOPHILS % (AUTO) 0.2 % (0-1); EOSINOPHILS % (AUTO) 0 % (0-6); HEMATOCRIT 35.6 % (42.0-52.0); HEMOGLOBIN 12.1 g/dl (14.0-17.9); LYMPHOCYTES # (AUTO) 0.8 X10'3 (1.1-4.8); LYMPHOCYTES % (AUTO) 6.9 % (21-51); MEAN CORPUSCULAR HGB CONC 33.9 g/dL (33.0-36.5); MEAN CORPUSCULAR VOLUME 91.6 FL (78-98); MEAN PLATELET VOLUME 10.5 FL (7.4-10.4); MONOCYTES # (AUTO) 0.7 X10'3 (0-0.9); MONOCYTES % (AUTO) 6.8 % (2-12); NEUTROPHILS # (AUTO) 9.5 X10'3 (1.8-7.7); NEUTROPHILS % (AUTO) 86.1 % (42-75); PLATELET COUNT 117 X10'3 (140-440); RED BLOOD COUNT 3.89 X10'6 (4.70-6.10); RED CELL DISTRIBUTION WIDTH 13.1 % (11.5-14.5)
[2022-12-02 04:14] LABS: ALBUMIN 3.1 G/DL (3.4-5.0); ANION GAP 5 (8-16); BLOOD UREA NITROGEN 20 MG/DL (7-18); BUN/CREATININE RATIO 18.2 (10.0-20.0); CALCIUM 8.2 MG/DL (8.5-10.1); CHLORIDE 103 MMOL/L (99-107); GLUCOSE 139 MG/DL (70-104); MAGNESIUM 2.3 MG/DL (1.5-2.4); PHOSPHORUS 2.5 MG/DL (2.3-4.5); POTASSIUM 4.7 MMOL/L (3.5-5.1); SODIUM 136 MMOL/L (135-145); TOTAL CARBON DIOXIDE 28.1 MMOL/L (24-32); eGFR 68 ML/MIN
--- NOTE | 2022-12-02 06:00 | NUR ---
Patient in room ICU 2043. I have received report from Janessa AMADOR and had the opportunity to ask questions and assume patient care.
[2022-12-02] MEDS: diltiazem SR 60mg capsule (twice daily) PO SCH ×2 (07:32→20:00)
[2022-12-02] MEDS: metoprolol tartrate 12.5mg (1/2 tablet) PO SCH ×3 (07:54→20:47)
[2022-12-02] MEDS: pantoprazole 40mg Tablet.DR PO SCH (07:57)
[2022-12-02] MEDS: aspirin 81mg tab.chew PO SCH (07:57)
[2022-12-02] MEDS: sennosides/docusate sodium tablet PO SCH ×2 (07:57→20:45)
[2022-12-02] MEDS: gabapentin 300mg capsule PO SCH (07:58)
[2022-12-02] MEDS: mupirocin 2% nasal ointment 1gm UD NS SCH (07:58)
--- NOTE | 2022-12-02 09:16 | NUR ---
F/u 12/02: Pt/SO seen by RD at bedside for written/verbal high protein/HH diet eds w/ RD contact information provided. Pt PO ~46% avg first 3 meals post-op decreased from initial 100% pre-op; reports good appetite and ate well this AM per RN. Pt declines Ensures is agreeable to strawberry-banana Armand smoothie BIDLD for wound healing; PA notified. RD encouraged pt/SO to contact dietitian's office if further nutrition questions/concerns. Noted no BM since admit at least 6 days receiving routine senna-s post-op; RD d/w RN regarding utilization of PRN bowel regimen if pt/MD agreeable. Rec: 1. continue NCS diet per MD; advance to heart healthy as medically indicated 2. [place]-banana Armand smoothie BIDLD for wound healing; pending PA verification in EMR 3. routine bowel care; no BM 5 days 4. daily scaled wt Addendum: 12/02/22 at [address] Amended: Links added.
[2022-12-02] MEDS: JUVEN Smoothie Arginine/Glut./Ca2+Bmb (Juven 19.3pkt) 240ml cup PO SCH ×2 (12:30→17:30)
[2022-12-02] MEDS ORDERED: magnesium hydroxide 30ml (MOM) UD suspension PO ONE (16:40)
--- NOTE | 2022-12-02 18:21 | NUR ---
Problems reprioritized. Patient report given, questions answered & plan of care reviewed with Janessa AMADOR.
[2022-12-02] MEDS: atorvastatin 10mg tablet PO SCH (20:48)
[2022-12-03] VITALS (10 sets, daily range): BP systolic 97–125; BP diastolic 51–70
[2022-12-03] MEDS: HYDROcodone/acetaminophen 10/325mg tab PO PRN ×5 (02:28→23:01)
[2022-12-03 02:48] LABS: BASOPHILS % (AUTO) 0.2 % (0-1); EOSINOPHILS # (AUTO) 0.1 X10'3 (0-0.9); EOSINOPHILS % (AUTO) 0.6 % (0-6); HEMATOCRIT 35.8 % (42.0-52.0); HEMOGLOBIN 12.1 g/dl (14.0-17.9); LYMPHOCYTES # (AUTO) 1.2 X10'3 (1.1-4.8); LYMPHOCYTES % (AUTO) 14.1 % (21-51); MEAN CORPUSCULAR HEMOGLOBIN 30.6 PG (27.0-31.0); MEAN CORPUSCULAR HGB CONC 33.7 g/dL (33.0-36.5); MEAN CORPUSCULAR VOLUME 90.9 FL (78-98); MEAN PLATELET VOLUME 10.6 FL (7.4-10.4); MONOCYTES # (AUTO) 0.8 X10'3 (0-0.9); MONOCYTES % (AUTO) 8.8 % (2-12); NEUTROPHILS # (AUTO) 6.6 X10'3 (1.8-7.7); NEUTROPHILS % (AUTO) 76.3 % (42-75); PLATELET COUNT 119 X10'3 (140-440); RED BLOOD COUNT 3.94 X10'6 (4.70-6.10); WHITE BLOOD COUNT 8.6 X10'3 (4.5-11.0)
[2022-12-03 03:02] LABS: ALBUMIN 2.8 G/DL (3.4-5.0); ANION GAP 8 (8-16); BLOOD UREA NITROGEN 18 MG/DL (7-18); BUN/CREATININE RATIO 20.2 (10.0-20.0); CALCIUM 8.3 MG/DL (8.5-10.1); CHLORIDE 103 MMOL/L (99-107); CREATININE 0.89 MG/DL (0.60-1.10); GLUCOSE 101 MG/DL (70-104); MAGNESIUM 2.2 MG/DL (1.5-2.4); PHOSPHORUS 2.1 MG/DL (2.3-4.5); POTASSIUM 4.5 MMOL/L (3.5-5.1); SODIUM 139 MMOL/L (135-145); eGFR 86 ML/MIN
[2022-12-03 03:59] LABS: PLATELET ESTIMATE DECREASED
[2022-12-03 04:00] LABS: LARGE PLATELETS FEW
[2022-12-03] MEDS: pantoprazole 40mg Tablet.DR PO SCH (06:59)
[2022-12-03 07:31] LABS: ACT @ 1.70 U 307 SEC (193-297); ACT @ 2.84 U 410 SEC (260-420); BASELINE ACT 179 SEC (101-148); PATIENT WEIGHT 96.0k KG
[2022-12-03] MEDS: sennosides/docusate sodium tablet PO SCH ×2 (07:52→19:53)
[2022-12-03] MEDS: aspirin 81mg tab.chew PO SCH (07:53)
[2022-12-03] MEDS: diltiazem SR 60mg capsule (twice daily) PO SCH ×2 (07:53→19:53)
[2022-12-03] MEDS: metoprolol tartrate 12.5mg (1/2 tablet) PO SCH ×2 (07:55→19:52)
[2022-12-03] MEDS ORDERED: magnesium 2GM in 50ml NS 50 ML IV PRN (08:00)
[2022-12-03] MEDS ORDERED: potassium Cl 40MEQ/270ML bag 270 ML IV PRN (08:00)
[2022-12-03] MEDS ORDERED: magnesium 4gm in 100ml NS 100 ML IV PRN (08:00)
[2022-12-03] MEDS ORDERED: potassium Cl 20 mEq SR tablet PO PRN ×2 (08:00)
[2022-12-03] MEDS ORDERED: potassium Cl 20mEq/100mL bag 100 ML IV PRN (08:00)
[2022-12-03] MEDS ORDERED: potassium Cl 40MEQ/1/2NS 520ml 520 ML IV PRN (08:00)
[2022-12-03] MEDS ORDERED: potassium CL 10mEq/100ml bag 100 ML IV PRN (08:00)
--- NOTE | 2022-12-03 08:49 | NUR ---
Nutrition consult: Pt already seen by JENI for post CABG nutrition therapy education, please see prior JENI note. Addendum: 12/03/22 at [address] Amended: Links added.
[2022-12-03] MEDS: magnesium Cl slow-release 64mg tablet PO SCH ×2 (09:00→19:52)
[2022-12-03] MEDS: ondansetron/PF 4mg/2ml inj IV PRN ×2 (09:17→22:58)
--- NOTE | 2022-12-03 10:11 | NUR ---
Problems reprioritized. Patient report given, questions answered & plan of care reviewed with PERRY Killian.
[2022-12-03] MEDS: JUVEN Smoothie Arginine/Glut./Ca2+Bmb (Juven 19.3pkt) 240ml cup PO SCH ×2 (12:58→17:28)
[2022-12-03] MEDS: acetaminophen 325mg tablet PO PRN (16:13)
--- NOTE | 2022-12-03 18:20 | NUR ---
Patient in room PCU 3020. I have received report from PERRY Killian and had the opportunity to ask questions and assume patient care. Patient is resting comfortably, just finished dinner. He is complaining of pain, I will bring his Jewell.
[2022-12-03] MEDS ORDERED: magnesium hydroxide 30ml (MOM) UD suspension PO ONE (18:40)
[2022-12-03] MEDS: atorvastatin 10mg tablet PO SCH (19:54)
[2022-12-04 02:00] VITALS: BP 95/61
--- NOTE | 2022-12-04 06:25 | NUR ---
Problems reprioritized. Patient report given, questions answered & plan of care reviewed with PERRY Morales.
[2022-12-04 06:30] VITALS: BP 120/68
[2022-12-04 06:47] LABS: BASOPHILS % (AUTO) 0.3 % (0-1); EOSINOPHILS # (AUTO) 0.2 X10'3 (0-0.9); EOSINOPHILS % (AUTO) 2.4 % (0-6); HEMATOCRIT 36.4 % (42.0-52.0); HEMOGLOBIN 12.3 g/dl (14.0-17.9); LYMPHOCYTES # (AUTO) 1.3 X10'3 (1.1-4.8); LYMPHOCYTES % (AUTO) 19.7 % (21-51); MEAN CORPUSCULAR HGB CONC 33.9 g/dL (33.0-36.5); MEAN CORPUSCULAR VOLUME 91.6 FL (78-98); MEAN PLATELET VOLUME 10.5 FL (7.4-10.4); MONOCYTES # (AUTO) 0.6 X10'3 (0-0.9); MONOCYTES % (AUTO) 9.8 % (2-12); NEUTROPHILS # (AUTO) 4.4 X10'3 (1.8-7.7); NEUTROPHILS % (AUTO) 67.8 % (42-75); PLATELET COUNT 158 X10'3 (140-440); RED BLOOD COUNT 3.97 X10'6 (4.70-6.10); RED CELL DISTRIBUTION WIDTH 13.1 % (11.5-14.5); WHITE BLOOD COUNT 6.5 X10'3 (4.5-11.0)
[2022-12-04 06:58] LABS: ALBUMIN 2.8 G/DL (3.4-5.0); ANION GAP 9 (8-16); BLOOD UREA NITROGEN 21 MG/DL (7-18); BUN/CREATININE RATIO 23.3 (10.0-20.0); CALCIUM 8.3 MG/DL (8.5-10.1); CHLORIDE 103 MMOL/L (99-107); GLUCOSE 104 MG/DL (70-104); POTASSIUM 4.1 MMOL/L (3.5-5.1); SODIUM 136 MMOL/L (135-145); TOTAL CARBON DIOXIDE 23.8 MMOL/L (24-32); eGFR 85 ML/MIN
[2022-12-04] MEDS: diltiazem SR 60mg capsule (twice daily) PO SCH ×2 (07:57→21:27)
[2022-12-04] MEDS: magnesium Cl slow-release 64mg tablet PO SCH ×2 (07:57→21:24)
[2022-12-04] MEDS: sennosides/docusate sodium tablet PO SCH ×2 (07:57→20:00)
[2022-12-04] MEDS: metoprolol tartrate 12.5mg (1/2 tablet) PO SCH ×2 (07:57→21:24)
[2022-12-04] MEDS: pantoprazole 40mg Tablet.DR PO SCH (07:58)
[2022-12-04] MEDS: aspirin 81mg tab.chew PO SCH (07:58)
[2022-12-04] MEDS: HYDROcodone/acetaminophen 10/325mg tab PO PRN (07:59)
[2022-12-04] MEDS: ondansetron/PF 4mg/2ml inj IV PRN (08:07)
[2022-12-04] MEDS ORDERED: bisacodyl 10mg suppository rectal RC PRN (08:10)
[2022-12-04] MEDS ORDERED: magnesium citrate 296ml oral solution PO ONE ×2 (08:10→11:35)
[2022-12-04 08:14] LABS: PLATELET ESTIMATE NORMAL
[2022-12-04 08:18] LABS: POLYCHROMASIA FEW; ROULEAUX 1+
[2022-12-04] MEDS ORDERED: ibuprofen 200mg tablet PO PRN (08:25)
[2022-12-04] MEDS ORDERED: CARSR60C PO (08:34)
[2022-12-04] MEDS ORDERED: ASPI81TA53 PO (08:34)
[2022-12-04] MEDS ORDERED: LOP12.5T PO (08:34)
[2022-12-04] MEDS ORDERED: ATOR10TA PO (08:34)
[2022-12-04] MEDS ORDERED: HYDR-3972 PO (08:34)
[2022-12-04] MEDS ORDERED: furosemide 20 MG/2 ML vial IV ONE (08:40)
[2022-12-04] MEDS: JUVEN Smoothie Arginine/Glut./Ca2+Bmb (Juven 19.3pkt) 240ml cup PO SCH ×2 (12:30→17:57)
[2022-12-04] MEDS ORDERED: lactulose 20gm/30ml cup PO ONE (12:45)
[2022-12-04] MEDS: acetaminophen 325mg tablet PO PRN ×2 (17:05→21:28)
[2022-12-04 19:00] VITALS: BP 102/63
--- NOTE | 2022-12-04 21:00 | NUR ---
OUTBOUND SALES SPECIALIST documentation: I have reviewed and agree with all interventions, assessments performed and documented by Ara Mcnamara LVN .
[2022-12-04] MEDS: atorvastatin 10mg tablet PO SCH (21:26)
[2022-12-04 22:00] VITALS: BP 116/73
[2022-12-05 02:00] VITALS: BP 125/76
[2022-12-05] MEDS: acetaminophen 325mg tablet PO PRN (02:54)
[2022-12-05 06:16] LABS: BASOPHILS % (AUTO) 0.4 % (0-1); EOSINOPHILS # (AUTO) 0.3 X10'3 (0-0.9); EOSINOPHILS % (AUTO) 3.9 % (0-6); HEMATOCRIT 38.6 % (42.0-52.0); HEMOGLOBIN 13.3 g/dl (14.0-17.9); LYMPHOCYTES % (AUTO) 15.1 % (21-51); MEAN CORPUSCULAR HEMOGLOBIN 31.1 PG (27.0-31.0); MEAN CORPUSCULAR HGB CONC 34.5 g/dL (33.0-36.5); MEAN CORPUSCULAR VOLUME 90.1 FL (78-98); MEAN PLATELET VOLUME 9.8 FL (7.4-10.4); MONOCYTES # (AUTO) 0.5 X10'3 (0-0.9); MONOCYTES % (AUTO) 7.8 % (2-12); NEUTROPHILS # (AUTO) 4.7 X10'3 (1.8-7.7); NEUTROPHILS % (AUTO) 72.8 % (42-75); PLATELET COUNT 214 X10'3 (140-440); RED BLOOD COUNT 4.29 X10'6 (4.70-6.10); RED CELL DISTRIBUTION WIDTH 13.1 % (11.5-14.5); WHITE BLOOD COUNT 6.5 X10'3 (4.5-11.0)
[2022-12-05 06:30] VITALS: BP 118/75
--- NOTE | 2022-12-05 06:31 | NUR ---
Problems reprioritized. Patient report given, questions answered & plan of care reviewed with Carmen RN.
[2022-12-05 06:38] LABS: ALBUMIN 2.8 G/DL (3.4-5.0); ANION GAP 12 (8-16); BLOOD UREA NITROGEN 22 MG/DL (7-18); BUN/CREATININE RATIO 24.7 (10.0-20.0); CALCIUM 8.4 MG/DL (8.5-10.1); CHLORIDE 102 MMOL/L (99-107); CREATININE 0.89 MG/DL (0.60-1.10); GLUCOSE 102 MG/DL (70-104); POTASSIUM 4.2 MMOL/L (3.5-5.1); SODIUM 139 MMOL/L (135-145); TOTAL CARBON DIOXIDE 25.2 MMOL/L (24-32); eGFR 86 ML/MIN
[2022-12-05] MEDS: magnesium Cl slow-release 64mg tablet PO SCH ×2 (09:16→20:01)
[2022-12-05] MEDS: pantoprazole 40mg Tablet.DR PO SCH (09:17)
[2022-12-05] MEDS: aspirin 81mg tab.chew PO SCH (09:17)
[2022-12-05] MEDS: diltiazem SR 60mg capsule (twice daily) PO SCH ×2 (09:17→20:01)
[2022-12-05] MEDS: sennosides/docusate sodium tablet PO SCH ×2 (09:17→20:01)
[2022-12-05] MEDS: metoprolol tartrate 12.5mg (1/2 tablet) PO SCH ×2 (09:17→20:03)
[2022-12-05] MEDS: traMADol 50MG tablet PO PRN ×4 (09:24→21:47)
[2022-12-05 10:30] VITALS: BP 97/54
[2022-12-05] MEDS: JUVEN Smoothie Arginine/Glut./Ca2+Bmb (Juven 19.3pkt) 240ml cup PO SCH ×2 (12:44→17:26)
[2022-12-05 15:30] VITALS: BP 104/67
[2022-12-05 18:00] VITALS: BP 113/66
--- NOTE | 2022-12-05 20:15 | NUR ---
SLUBBER RUNNER documentation: I have reviewed and agree with all interventions, assessments performed and documented by WOODY REDDY LVN.
[2022-12-05] MEDS: atorvastatin 10mg tablet PO SCH (21:47)
[2022-12-05 22:00] VITALS: BP 124/82
[2022-12-06 02:00] VITALS: BP 104/81
[2022-12-06] MEDS: traMADol 50MG tablet PO PRN (06:04)
[2022-12-06 06:39] LABS: BASOPHILS % (AUTO) 0.3 % (0-1); EOSINOPHILS # (AUTO) 0.3 X10'3 (0-0.9); EOSINOPHILS % (AUTO) 4.4 % (0-6); HEMATOCRIT 39.7 % (42.0-52.0); HEMOGLOBIN 13.4 g/dl (14.0-17.9); LYMPHOCYTES # (AUTO) 1.4 X10'3 (1.1-4.8); MEAN CORPUSCULAR HEMOGLOBIN 30.5 PG (27.0-31.0); MEAN CORPUSCULAR HGB CONC 33.6 g/dL (33.0-36.5); MEAN CORPUSCULAR VOLUME 90.6 FL (78-98); MEAN PLATELET VOLUME 9.6 FL (7.4-10.4); MONOCYTES # (AUTO) 0.5 X10'3 (0-0.9); MONOCYTES % (AUTO) 7.9 % (2-12); NEUTROPHILS # (AUTO) 4.5 X10'3 (1.8-7.7); NEUTROPHILS % (AUTO) 66.4 % (42-75); PLATELET COUNT 253 X10'3 (140-440); RED BLOOD COUNT 4.39 X10'6 (4.70-6.10); WHITE BLOOD COUNT 6.7 X10'3 (4.5-11.0)
[2022-12-06 07:00] VITALS: BP 119/69
[2022-12-06 07:01] LABS: ALBUMIN 2.6 G/DL (3.4-5.0); ANION GAP 10 (8-16); BLOOD UREA NITROGEN 24 MG/DL (7-18); BUN/CREATININE RATIO 25.5 (10.0-20.0); CALCIUM 8.5 MG/DL (8.5-10.1); CHLORIDE 102 MMOL/L (99-107); CREATININE 0.94 MG/DL (0.60-1.10); GLUCOSE 99 MG/DL (70-104); POTASSIUM 4.5 MMOL/L (3.5-5.1); SODIUM 137 MMOL/L (135-145); TOTAL CARBON DIOXIDE 25.4 MMOL/L (24-32); eGFR 81 ML/MIN
[2022-12-06] MEDS: pantoprazole 40mg Tablet.DR PO SCH (07:30)
[2022-12-06 08:00] VITALS: BP_SYST 115
[2022-12-06] MEDS: metoprolol tartrate 12.5mg (1/2 tablet) PO SCH (08:00)
[2022-12-06] MEDS: sennosides/docusate sodium tablet PO SCH (08:00)
[2022-12-06] MEDS: diltiazem SR 60mg capsule (twice daily) PO SCH (08:00)
[2022-12-06] MEDS: magnesium Cl slow-release 64mg tablet PO SCH (08:00)
[2022-12-06] MEDS: aspirin 81mg tab.chew PO SCH (08:30)
--- NOTE | 2022-12-06 12:30 | NUR ---
PT DISCHARGED TO HOME, WHICH IS IN [place]. DISHCHARGE INSTRUCTIONS EXPLAINED TO PATIENT WITH BOTH PATIENT AND SPOUSE VERBALIZING UNDERSTANDING REGARDING PLAN OF CARE. PT HAS ALREADY PICKED UP HIS NEW PRESCRIPTIONS AND ALL QUESTIONS HAVE BEEN ANSWERED. PT WAS SUPER ANTSY TO LEAVE TODAY AND ALMOST LEFT WITHOUT HIS DC INSTRUCTIONS!! PT LEFT ON FOOT, WITH , VSS A/OX4 PIV DC'D AND CANNULA INTACT. LBM 12/06/22 RA SAT 98% LUNGS ARE CLEAR TO AUSCULTATION
== END 2022-12-06 12:40 | disposition home or self-care (01) | DRG 165 ==
LOC: ER 21:20 → ED HOLD 22:23 → PCU 3S 23:45 → ICU 2S 11-27 13:01 → PCU 3S 12-03 11:26
PROVIDERS: ADMIT Internal Medicine; ATTEND Internal Medicine
PROC: 4A023N7 Measurement of Cardiac Sampling and Pressure, Left Heart, Percutaneous Approach (ICD-10-PCS; 2022-11-27)
PROC: B2111ZZ Fluoroscopy of Multiple Coronary Arteries using Low Osmolar Contrast (ICD-10-PCS; 2022-11-27)
PROC: B2151ZZ Fluoroscopy of Left Heart using Low Osmolar Contrast (ICD-10-PCS; 2022-11-27)
PROC: B41F1ZZ Fluoroscopy of Right Lower Extremity Arteries using Low Osmolar Contrast (ICD-10-PCS; 2022-11-27)
PROC: 02100Z8 Bypass Coronary Artery, One Artery from Right Internal Mammary, Open Approach (ICD-10-PCS; principal; 2022-12-01)
PROC: 02100Z9 Bypass Coronary Artery, One Artery from Left Internal Mammary, Open Approach (ICD-10-PCS; 2022-12-01)
PROC: 02110AW Bypass Coronary Artery, Two Arteries from Aorta with Autologous Arterial Tissue, Open Approach (ICD-10-PCS; 2022-12-01)
PROC: 5A1221Z Performance of Cardiac Output, Continuous (ICD-10-PCS; 2022-12-01)
PROC: 03BC4ZZ Excision of Left Radial Artery, Percutaneous Endoscopic Approach (ICD-10-PCS; 2022-12-01)
PROC: 5A1223Z Performance of Cardiac Pacing, Continuous (ICD-10-PCS; 2022-12-01)
PROC: B24BZZ4 Ultrasonography of Heart with Aorta, Transesophageal (ICD-10-PCS; 2022-12-01)
DX: I21.4 Non-ST elevation (NSTEMI) myocardial infarction (principal); E78.5 Hyperlipidemia, unspecified; I25.119 Atherosclerotic heart disease of native coronary artery with unspecified angina pectoris; K59.00 Constipation, unspecified; Z79.899 Other long term (current) drug therapy; Z82.49 Family history of ischemic heart disease and other diseases of the circulatory system; Z87.891 Personal history of nicotine dependence; Z84.1 Family history of disorders of kidney and ureter; Z98.1 Arthrodesis status
CPT/HCPCS: 36415; 36600; 71045; 80048; 80053; 80061; 81003; 82330; 82435; 82803; 82947; 82948; 83036; 83735; 83880; 84100; 84132; 84295; 84484; 85008; 85018; 85025; 85347; 85379; 85384; 85610; 85730; 86885; 86900; 86901; 86920; 87070; 87081; 93005; 93306; 93312; 93325; 93458; 93880; 93970; 94002; 94010; 94760; 97110; 97116; 97161; 97530; 99152; 99153; 99285; A4618; A6258; A6402; A6449; A7000; A7048; C1751; G0378; J0171; J0690; J1100; J1200; J1644; J1815; J1940; J2060; J2150; J2250; J2270; J2370; J2405; J2440; J2704; J2930; J3010; J3370; J3475; J3480; J3490; J7030; J7040; J7050; J7120; P9045; P9047; Q9967